=== PATIENT | male | born 1990 | race African-American/Black ===

== ENCOUNTER 2016-10-31 07:31 | Emergency (ER) | payer SELFPAY ==
[~2016-10-31] VITALS: Ht 188 cm; Wt 77.0 kg
[2016-10-31] MEDS ORDERED: IBUPROFEN 200 MG TABLET ONE (08:08)
[2016-10-31] MEDS ORDERED: IBUPROFEN 200 MG TABLET PO ONE (08:30)
[2016-10-31 10:00] VITALS: BP 141/85
== END 2016-10-31 10:02 | disposition home or self-care (01) ==
LOC: ED 09:20
DX: S93.432A Sprain of tibiofibular ligament of left ankle, initial encounter (principal); X50.1XXA Overexertion from prolonged static or awkward postures, initial encounter; Y93.67 Activity, basketball; Y92.328 Other athletic field as the place of occurrence of the external cause; Y99.8 Other external cause status
CPT/HCPCS: 99284

== ENCOUNTER 2016-12-18 19:25 | Emergency (ER) | payer SELFPAY ==
[~2016-12-18] VITALS: Ht 185.4 cm; Wt 70.4 kg
[2016-12-18 21:11] VITALS: BP 112/62
[2016-12-18] MEDS ORDERED: HYDROcodone/APAP 5/325 TABLET ONE (21:12)
[2016-12-18] MEDS ORDERED: KETOROLAC 30 MG/1 ML ONE (21:13)
[2016-12-18] MEDS ORDERED: DIAZEPAM 5 MG TABLET ONE (21:13)
[2016-12-18] MEDS ORDERED: HYDROcodone/APAP 5/325 TABLET PO ONE (21:30)
[2016-12-18] MEDS ORDERED: DIAZEPAM 5 MG TABLET PO ONE (21:30)
[2016-12-18] MEDS ORDERED: KETOROLAC 30 MG/1 ML IM ONE (21:30)
== END 2016-12-18 21:54 | disposition home or self-care (01) ==
LOC: ED 21:48
DX: S16.1XXA Strain of muscle, fascia and tendon at neck level, initial encounter (principal); G44.319 Acute post-traumatic headache, not intractable; V43.62XA Car passenger injured in collision with other type car in traffic accident, initial encounter; Y93.89 Activity, other specified; Y92.89 Other specified places as the place of occurrence of the external cause; Y99.8 Other external cause status
CPT/HCPCS: 70450; 72125; 96372; 99284; J1885

== ENCOUNTER 2016-12-19 12:59 | Emergency (ER) | payer SELFPAY ==
[~2016-12-19] VITALS: Ht 185.4 cm; Wt 56.2 kg
[2016-12-19 13:03] VITALS: BP 125/77
[2016-12-19] MEDS ORDERED: METHOCARBAMOL 750 MG TABLET ONE (13:28)
[2016-12-19] MEDS ORDERED: IBUPROFEN 200 MG TABLET ONE ×2 (13:28)
[2016-12-19] MEDS ORDERED: IBUPROFEN 200 MG TABLET PO ONE (13:30)
[2016-12-19] MEDS ORDERED: METHOCARBAMOL 750 MG TABLET PO ONE (13:30)
== END 2016-12-19 14:15 | disposition home or self-care (01) ==
LOC: ED 13:50
DX: S29.012A Strain of muscle and tendon of back wall of thorax, initial encounter (principal); V49.69XA Unspecified car occupant injured in collision with other motor vehicles in traffic accident, initial encounter; Y93.89 Activity, other specified; Y92.411 Interstate highway as the place of occurrence of the external cause; Y99.8 Other external cause status
CPT/HCPCS: 71020; 99284

== ENCOUNTER 2017-04-14 20:49 | Emergency (ER) | payer SELFPAY ==
[~2017-04-14] VITALS: Ht 185.4 cm; Wt 69.8 kg
[2017-04-14 20:58] VITALS: BP 132/89
[2017-04-14] MEDS ORDERED: ACET325T14 PO (21:26)
[2017-04-14] MEDS ORDERED: NAPR220C2 PO (21:26)
== END 2017-04-14 22:11 | disposition home or self-care (01) ==
LOC: ED 22:00
DX: K08.89 Other specified disorders of teeth and supporting structures (principal)
CPT/HCPCS: 99283

== ENCOUNTER 2020-01-05 05:17 | Emergency (ER) | payer SELFPAY ==
[~2020-01-05] VITALS: Ht 180.3 cm; Wt 67.4 kg
[~2020-01-05 05:17] MED LIST: ACET325T14 PO; NAPR220C2 PO
--- NOTE | 2020-01-05 05:35 | NUR ---
assumed care of pt. pt here c/o pain to L 3rd finger after boxing this evening. pt admits to ETOH and marijuana use tonight. no other injuries. no apparent distress. friend at bedside
--- NOTE | 2020-01-05 05:48 | NUR ---
x-ray has been to bedside
[2020-01-05] MEDS ORDERED: LIDOCAINE-MPF 1%, 5ML ONE (05:51)
[2020-01-05] MEDS ORDERED: BUPIVACAINE 0.25% ONE (05:52)
--- NOTE | 2020-01-05 05:56 | NUR ---
Shantanu SCHMIDT at bedside for block and reduction
[2020-01-05] MEDS ORDERED: BUPIVACAINE/PF 0.25% INFIL ONE (06:00)
[2020-01-05] MEDS ORDERED: LIDOCAINE-MPF 1%, 5ML INFIL ONE (06:00)
--- NOTE | 2020-01-05 06:11 | NUR ---
x-ray at bedside for post-reduction imaging
[2020-01-05 06:38] VITALS: BP 115/79
== END 2020-01-05 06:43 | disposition home or self-care (01) ==
LOC: ED 06:20
DX: S63.285A Dislocation of proximal interphalangeal joint of left ring finger, initial encounter (principal); X58.XXXA Exposure to other specified factors, initial encounter; Y93.89 Activity, other specified; Y92.488 Other paved roadways as the place of occurrence of the external cause; Y99.8 Other external cause status
CPT/HCPCS: 26770; 99284